=== PATIENT | male | born 1965 ===

== ENCOUNTER 2016-07-17 01:31 | Observation (INO) | payer SELFPAY ==
--- NOTE | 2016-07-17 02:18 | ED PDOC ---
HPI: General Adult Time Seen by Provider: 07/17/16 01:58 Chief Complaint (Nursing): Upper Extremity Problem/Injury History Per: Patient Additional Complaint(s): Pt. states yesterday he was working when he suddenly had "shaking" to his entire R upper arm. Reports no pain to arm. Shaking occurs randomly and resolve spontaneously. Denies chest pain, numbness, tingling, trauma. Past Medical History Reviewed: Historical Data, Nursing Documentation, Vital Signs Vital Signs: Last Vital Signs Temp 98.1 F 07/17/16 01:47 Pulse 68 07/17/16 04:51 Resp 16 07/17/16 01:47 BP 123/96 H 07/17/16 01:47 Pulse Ox 97 07/17/16 04:51 - Medical History PMH: Diabetes - Family History Family History: States: No Known Family Hx - Home Medications Home Medications: Ambulatory Orders Medication Instructions Recorded No Known Home Med 07/17/16 - Allergies Allergies/Adverse Reactions: Allergies Allergy/AdvReac Type Severity Reaction Status Date / Time No Known Allergies Allergy Verified 07/17/16 01:46 Review of Systems ROS Statement: Except As Marked, All Systems Reviewed And Found Negative Physical Exam - Reviewed Nursing Documentation Reviewed: Yes Vital Signs Reviewed: Yes - Physical Exam Appears: Positive for: Well, Non-toxic, No Acute Distress Head Exam: Positive for: ATRAUMATIC, NORMAL INSPECTION, NORMOCEPHALIC Skin: Positive for: Normal Color, Warm. Negative for: Rash Eye Exam: Positive for: EOMI, Normal appearance, PERRL ENT: Positive for: Normal ENT Inspection Neck: Positive for: Normal, Painless ROM Cardiovascular/Chest: Positive for: Regular Rate, Rhythm Respiratory: Positive for: Normal Breath Sounds. Negative for: Decreased Breath Sounds, Accessory Muscle Use, Respiratory Distress Gastrointestinal/Abdominal: Positive for: Normal Exam, Soft. Negative for: Tenderness Back: Positive for: Normal Inspection Extremity: Positive for: Normal ROM, Other (RUE: unprovoked tremors noted to the entire R upper arm without tenderness, swelling, or deformity) Neurologic/Psych: Positive for: Alert, Oriented - Laboratory Results Result Diagrams: 07/17/16 03:00 07/17/16 03:00 - ECG ECG: Positive for: Interpreted By Me ECG Rhythm: Positive for: Sinus Rhythm. Negative for: ST/T Changes Rate: 68 O2 Sat by Pulse Oximetry: 97 - Progress ED Course And Treament: Labs ordered. FSBS: 495. Pt. with gap. IV NS bolus x 2, insulin 8mg IV given. ABG ordered. Pt. admits to not taking his DM meds in 5-6 months. States he has never taken insulin. Further reports he was feeling well therefore he discontinued his DM medication on his own. Case d/w Dr. Thornton, hospitalist, and arrangements made for admission. Disposition - Clinical Impression Clinical Impression: Hyperglycemia - Patient ED Disposition Is Patient to be Admitted: Yes - Disposition Disposition Time: 05:30 Condition: STABLE - Pt Status Changed To: Hospital Disposition Of: Inpatient - Admit Certification Admit to Inpatient:: After my assessment, the patient will require hospitalization for at least two midnights. This is because of the severity of symptoms shown, intensity of services needed, and/or the medical risk in this patient being treated as an outpatient. - POA Present On Arrival: None
[2016-07-17 03:59] LABS: BASO % 0.7 % (0.0-2.0); EOS # 0.1 K/uL (0.0-0.7); EOS % 0.5 % (0.0-4.0); HEMATOCRIT 47.1 % (35.0-51.0); LYMPH # 2.1 K/uL (1.0-4.3); LYMPH % 21.9 % (20.0-40.0); MEAN CELL VOLUME 84.4 fl (80.0-94.0); MEAN CORPUSCULAR HEMOGLOBIN 27.8 pg (27.0-31.0); MEAN PLATELET VOLUME 9.3 fl (7.2-11.7); MONO # 0.9 K/uL (0.0-0.8); MONO % 9.1 % (0.0-10.0); NEUT # 6.4 K/uL (1.8-7.0); NEUT % 67.8 % (50.0-75.0); NRBC % 0.1 % (0.0-0.0); RED CELL DISTRIBUTION WIDTH 15.1 % (11.5-14.5); WHITE BLOOD COUNT 9.4 K/uL (4.8-10.8)
[2016-07-17 04:00] LABS: BASO # 0.1 K/uL (0.0-0.2)
[2016-07-17 04:08] LABS: CHLORIDE 89 mmol/L (98-107); POTASSIUM 5.6 MMOL/L (3.6-5.0); SODIUM 127 mmol/l (132-148)
[2016-07-17 04:10] LABS: GFR AFRICAN-AMERICAN > 60
[2016-07-17 04:11] LABS: ALB/GLOB RATIO 1.1 (1.0-2.1); ALKALINE PHOSPHATASE 95 U/L (38-126); ALT/SGPT 53 U/L (21-72); AST/SGOT 59 U/L (17-59); BILIRUBIN,TOTAL 1.5 mg/dl (0.2-1.3); BLOOD UREA NITROGEN 19 mg/dl (9-20); CALCIUM 8.9 mg/dL (8.4-10.2); CARBON DIOXIDE 20 mmol/L (22-30); TOTAL PROTEIN 8.7 G/DL (6.3-8.2)
[2016-07-17] MEDS ORDERED: Sodium Chloride 0.9% 1,000 ML IV STA ×2 (04:14→04:47)
[2016-07-17] MEDS ORDERED: Insulin Regular 100 units/ml IVP STA ×2 (04:37→05:44)
[2016-07-17] MEDS ORDERED: Insulin Regular 100 units/ml ONE (04:53)
[2016-07-17 05:30] LABS: URINE BILIRUBIN NEGATIVE (NEGATIVE); URINE COLOR YELLOW (YELLOW); URINE GLUCOSE (UA) >1000 mg/dL (Normal); URINE KETONE >=80 mg/dL (NEGATIVE)
[2016-07-17 05:31] LABS: RBC URINE 1 /hpf (0-3); URINE BACTERIA FEW (<OCC); URINE BLOOD TRACE (NEGATIVE); URINE LEUKOCYTE ESTERASE NEGATIVE Leu/uL (Negative); URINE PROTEIN TRACE mg/dL (NEGATIVE); URINE UROBILINOGEN 0.2 mg/dL (0.2-1.0); WBC URINE 2 /hpf (0-5)
--- NOTE | 2016-07-17 06:14 | CP.PCM.HP ---
History of Present Illness - History of Present Illness History of Present Illness: CC: arm tremors, nausea HPI: This is a 51 y/o male with MHx significant for DM2 who self-d/c'ed his medications about 6 month because he was 'feeling good'. He comes in with c/o ' shaking' of his RUE yesterday. He also c/o some nausea. He denies having the shaking prior to yesterday. The shaking occurs randomly and self resolves. Denies any f/c/n/v/d. Denies any history of seizures. Denies focal weakness, numbness, or tingling. ROS: 14 systems reviewed, negative other than HPI MHx: DM2 SHx: None Allergies: NKDA Medications: currently none Family Hx: Patient unable to remember any medical conditions in family Social Hx: Lives alone? denies EtOH or tobacco Present on Admission - Present on Admission Any Indicators Present on Admission: No Past Patient History - Past Social History Smoking Status: Never Smoked - ENDOCRINE/METABOLIC Hx Diabetes Mellitus Type 2: Yes - PSYCHIATRIC Hx Substance Use: No - SURGICAL HISTORY Hx Surgeries: No Meds Allergies/Adverse Reactions: Allergies Allergy/AdvReac Type Severity Reaction Status Date / Time No Known Allergies Allergy Verified 07/17/16 01:46 Physical Exam - Constitutional Appears: No Acute Distress - Head Exam Head Exam: ATRAUMATIC, NORMOCEPHALIC - Eye Exam Eye Exam: EOMI, PERRL - ENT Exam ENT Exam: Mucous Membranes Dry - Neck Exam Neck exam: Positive for: Full Rom - Respiratory Exam Respiratory Exam: Clear to Auscultation Bilateral, NORMAL BREATHING PATTERN - Cardiovascular Exam Cardiovascular Exam: REGULAR RHYTHM, +S1, +S2 - GI/Abdominal Exam GI & Abdominal Exam: Normal Bowel Sounds, Soft Additional comments: umbilical hernia - Extremities Exam Extremities exam: Positive for: full ROM, normal inspection - Neurological Exam Neurological exam: Alert, CN II-XII Intact, Oriented x3 - Psychiatric Exam Psychiatric exam: Normal Affect, Normal Mood - Skin Skin Exam: Dry, Warm Results - Vital Signs Recent Vital Signs: Last Vital Signs Temp 98.1 F 07/17/16 01:47 Pulse 68 07/17/16 06:09 Resp 20 07/17/16 06:05 BP 118/59 L 07/17/16 06:05 Pulse Ox 97 07/17/16 06:09 - Labs Result Diagrams: 07/17/16 03:00 07/17/16 03:00 - EKG Data EKG Interpreted by: Myself EKG shows normal: Sinus rhythm Rate: Normal Assessment & Plan (1) Hyperglycemia Assessment and Plan: 51 y/o male with DM2 who comes in with elevated ser gluc 2/2 being off his medications for months. Also c/o RUE shaking. -NPO for now and IVF -Q4H accuchecks with SSI -BMP at 8 AM -- eval Na, K, CO2, and ser gluc -A1C at 8 AM -Resume PO hypoglycemics this AM if ser gluc improving -Lovenox for DVT PPx Status: Acute (2) DVT prophylaxis Status: Acute
[2016-07-17] MEDS: Sodium Chloride 0.9% 1,000 ML IV SCH ×2 (06:36→14:20)
[2016-07-17] MEDS: Insulin Regular 100 units/ml SC SCH ×3 (06:44→16:17)
[2016-07-17 07:06] LABS: GLUCOSE,RANDOM 710 mg/dL (75-110)
[2016-07-17 08:20] VITALS: RESP 18
[2016-07-17] MEDS ORDERED: Enoxaparin 40 mg Syringe SC SCH (09:00)
--- NOTE | 2016-07-17 09:25 | RAD ---
HISTORY: clearance COMPARISON: 01/17/2009 FINDINGS: LUNGS: No focal airspace opacity. PLEURA: No significant pleural effusion identified, no pneumothorax apparent. CARDIOVASCULAR: Normal. OSSEOUS STRUCTURES: The osseous structures demonstrate degenerative changes. VISUALIZED UPPER ABDOMEN: Upper abdomen is suboptimally evaluated. OTHER FINDINGS: None. IMPRESSION: No focal airspace opacity.
--- NOTE | 2016-07-17 12:02 | CP.PCM.DIS ---
Provider - Provider Date of Admission: 07/17/16 05:44 Attending physician: Jagdish Thornton MD Primary care physician: States that he does not have one Consults: None Time Spent in preparation of Discharge (in minutes): 40 Hospital Course - Lab Results Lab Results: Most Recent Lab Values WBC 9.4 K/uL (4.8-10.8) 07/17/16 03:00 RBC 5.58 Mil/uL (4.40-5.90) 07/17/16 03:00 Hgb 15.5 g/dL (12.0-18.0) 07/17/16 03:00 Hct 47.1 % (35.0-51.0) 07/17/16 03:00 MCV 84.4 fl (80.0-94.0) 07/17/16 03:00 MCH 27.8 pg (27.0-31.0) 07/17/16 03:00 MCHC 33.0 g/dL (33.0-37.0) 07/17/16 03:00 RDW 15.1 % (11.5-14.5) H 07/17/16 03:00 Plt Count 251 K/uL (130-400) 07/17/16 03:00 MPV 9.3 fl (7.2-11.7) 07/17/16 03:00 Neut % (Auto) 67.8 % (50.0-75.0) 07/17/16 03:00 Lymph % (Auto) 21.9 % (20.0-40.0) 07/17/16 03:00 [place] % (Auto) 9.1 % (0.0-10.0) 07/17/16 03:00 Eos % (Auto) 0.5 % (0.0-4.0) 07/17/16 03:00 Baso % (Auto) 0.7 % (0.0-2.0) 07/17/16 03:00 Neut # 6.4 K/uL (1.8-7.0) 07/17/16 03:00 Lymph # 2.1 K/uL (1.0-4.3) 07/17/16 03:00 [place] # 0.9 K/uL (0.0-0.8) H 07/17/16 03:00 Eos # 0.1 K/uL (0.0-0.7) 07/17/16 03:00 Baso # 0.1 K/uL (0.0-0.2) 07/17/16 03:00 Sodium 127 mmol/l (132-148) L 07/17/16 03:00 Potassium 5.6 MMOL/L (3.6-5.0) H 07/17/16 03:00 Chloride 89 mmol/L (98-107) L 07/17/16 03:00 Carbon Dioxide 20 mmol/L (22-30) L 07/17/16 03:00 Anion Gap 24 (10-20) H 07/17/16 03:00 BUN 19 mg/dl (9-20) 07/17/16 03:00 Creatinine 0.7 mg/dL (0.8-1.5) L 07/17/16 03:00 Est GFR ( Amer) > 60 07/17/16 03:00 Est GFR (Non-Af Amer) > 60 07/17/16 03:00 POC Glucose (mg/dL) 322 mg/dL (65-110) H 07/17/16 11:55 Random Glucose 710 mg/dL (75-110) H* 07/17/16 03:00 Calcium 8.9 mg/dL (8.4-10.2) 07/17/16 03:00 Total Bilirubin 1.5 mg/dl (0.2-1.3) H 07/17/16 03:00 AST 59 U/L (17-59) 07/17/16 03:00 ALT 53 U/L (21-72) 07/17/16 03:00 Alkaline Phosphatase 95 U/L (38-126) 07/17/16 03:00 Total Protein 8.7 G/DL (6.3-8.2) H 07/17/16 03:00 Albumin 4.5 g/dL (3.5-5.0) 07/17/16 03:00 Globulin 4.2 gm/dL (2.2-3.9) H 07/17/16 03:00 Albumin/Globulin Ratio 1.1 (1.0-2.1) 07/17/16 03:00 Urine Color Yellow (YELLOW) 07/17/16 05:08 Urine Clarity Clear (Clear) 07/17/16 05:08 Urine pH 6.0 (5.0-8.0) 07/17/16 05:08 Ur Specific [place] <= 1.005 (1.003-1.030) 07/17/16 05:08 Urine Protein Trace mg/dL (NEGATIVE) 07/17/16 05:08 Urine Glucose (UA) >1000 mg/dL (Normal) 07/17/16 05:08 Urine Ketones >=80 mg/dL (NEGATIVE) 07/17/16 05:08 Urine Blood Trace (NEGATIVE) 07/17/16 05:08 Urine Nitrate Negative (NEGATIVE) 07/17/16 05:08 Urine Bilirubin Negative (NEGATIVE) 07/17/16 05:08 Urine Urobilinogen 0.2 mg/dL (0.2-1.0) 07/17/16 05:08 Ur Leukocyte Esterase Negative Myra/uL (Negative) 07/17/16 05:08 Urine RBC (Auto) 1 /hpf (0-3) 07/17/16 05:08 Urine Microscopic WBC 2 /hpf (0-5) 07/17/16 05:08 Ur Squamous Epith Cells 1 /hpf (0-5) 07/17/16 05:08 Urine Bacteria Few (<OCC) H 07/17/16 05:08 - Hospital Course Hospital Course: HPI: This is a 51 y/o male with MHx significant for DM2 who self-d/c'ed his medications about 6 month ago because he was 'feeling good'. He comes in with c/ o 'shaking' of his RUE yesterday. He also c/o some nausea. He denies having the shaking prior to yesterday. The shaking occurs randomly and self resolves. Denies any f/c/n/v/d. Denies any history of seizures. Denies focal weakness, numbness, or tingling. Currently upon FULL ROS there is NO longer any more shaking of his RUE and there is NO longer any nausea. He ate breakfast and there were no issues afterwards. NO chest pain, NO palpitations, NO SOB/Cough/Wheezing, NO dysphagia/odynophagia , NO abdominal pain, NO n/v/d/c (last bowel movement was yesterday and there was NO black/bloody stools), NO burning/pain with urination, NO lightheadedness/ dizziness, NO headache, NO new changes in vision (history of blurriness of vision), NO new changes in hearing/ear pain, NO edema, NO paresthesias. Exam: HEENT: EOMI, PERRLA, NO cervical lymphadenopathy, NO thryomegaly, NO pharyngeal erythema/exudate Cardio: NS1 and NS2, NO M/R/G Resp: CTA B/L, NO R/R/W GI: BSx4, Soft, NT, ND, Central Obesity and therefore Liver and Spleen could not be palpated, (+) Umbilical Hernia without any signs of strangulation, NO guarding/rebound tenderness Ext: Pulses are strong and equal, Capillary Refill is 2 seconds, NO edema Neuro: CN II through XII are grossly intact Assessment and Plan: 1). Hyperglycemia I spoke with the Respiratory Therapy Aide and she will provide patient with Diabetic Diet in [place] Will discharge patient on Metformin 500 mg PO 2x/day: patient could not provide information concerning which diabetic oral medication he was taking 6 months ago. Stressed the importance of follow up with the clinic for coordination of his health care. Although still high, blood glucose much improved from admission Patient is stable for discharge to home and follow up with the clinic The following instructions were explained to patient and a copy of this discharge summary was provided to patient: 1). Have the following prescription filled at your pharmacy: Metformin 500 mg, 1 tablet with breakfast and 1 tablet with dinner everyday 2). Please make sure to contact the [facility] by calling for an appointment to take place in the next 7 days. It is located on [address] [place] [address] in [place], [place]. The [facility] will helpt to coordinate your care. 3). Follow the recommendations on the Diabetic Diet hand out that was provided to you by the Respiratory Therapy Aide. 4). Please take care. Dave Zaman D.O. Discharge Exam - Head Exam Head Exam: ATRAUMATIC, NORMOCEPHALIC Discharge Plan - Follow Up Plan Condition: STABLE Disposition: HOME/ ROUTINE
--- NOTE | 2016-07-17 12:43 | CARD ---
APPROVED REPORT EKG Measurement Heart [id number] <Conclusion> Sinus rhythm with premature atrial complexes Junctional ST depression, probably normal Borderline ECG
[2016-07-17 12:51] VITALS: BP 119/73; PULSE 66; TEMP 98; O2SAT 96
[2016-07-17 14:02] LABS: BLOOD UREA NITROGEN 14 mg/dl (9-20); CALCIUM 7.6 mg/dL (8.4-10.2); CARBON DIOXIDE 24 mmol/L (22-30); CHLORIDE 99 mmol/L (98-107); GFR AFRICAN-AMERICAN > 60; GLUCOSE,RANDOM 365 mg/dL (75-110); POTASSIUM 3.6 MMOL/L (3.6-5.0); SODIUM 132 mmol/l (132-148)
[2016-07-19 09:51] LABS: ABG ALLEN TEST YES; ARTERIAL BLOOD GAS PH 7.38 (7.35-7.45); ARTERIAL BLOOD GAS PO2 76 mm/Hg (80-100)
== END 2016-07-17 15:00 | disposition home or self-care (01) ==
LOC: H.ER 01:31 → H.ERHOLD 05:44 → H.TEL 07:06
PROVIDERS: ADMIT Internal Medicine; ATTEND Internal Medicine
DX: E11.65 Type 2 diabetes mellitus with hyperglycemia (principal); E66.9 Obesity, unspecified; K42.9 Umbilical hernia without obstruction or gangrene
CPT/HCPCS: 71010; 80053; 81003; 82803; 82948; 83036; 85025; 93005; 96361; 96372; 96374; 96376; 99285; G0378; J1650; J7040

== ENCOUNTER 2016-08-04 16:50 | Emergency (ER) | payer SELFPAY ==
[2016-08-04 16:54] VITALS: BP 136/81; PULSE 69; RESP 16; TEMP 98.5; O2SAT 98
[2016-08-04] MEDS ORDERED: Insulin Regular 100 units/ml SC STA (17:25)
[2016-08-04] MEDS ORDERED: Sodium Chloride 0.9% 1,000 ML IV STA ×2 (17:25→20:43)
[2016-08-04 17:53] LABS: BASO # 0.1 K/uL (0.0-0.2); BASO % 1.2 % (0.0-2.0); EOS # 0.1 K/uL (0.0-0.7); EOS % 0.8 % (0.0-4.0); HEMATOCRIT 45.9 % (35.0-51.0); LYMPH # 1.7 K/uL (1.0-4.3); LYMPH % 27.2 % (20.0-40.0); MEAN CELL VOLUME 84.2 fl (80.0-94.0); MEAN CORPUSCULAR HEMOGLOBIN 27.4 pg (27.0-31.0); MEAN CORPUSCULAR HGB CONC 32.6 g/dL (33.0-37.0); MEAN PLATELET VOLUME 8.1 fl (7.2-11.7); MONO # 0.5 K/uL (0.0-0.8); MONO % 8.4 % (0.0-10.0); NEUT # 3.9 K/uL (1.8-7.0); NEUT % 62.4 % (50.0-75.0); NRBC % 0.1 % (0.0-0.0); RED CELL DISTRIBUTION WIDTH 15.1 % (11.5-14.5); WHITE BLOOD COUNT 6.3 K/uL (4.8-10.8)
[2016-08-04 18:11] LABS: ALB/GLOB RATIO 1.2 (1.0-2.1); ALKALINE PHOSPHATASE 67 U/L (38-126); ALT/SGPT 85 U/L (21-72); AST/SGOT 40 U/L (17-59); BILIRUBIN,TOTAL 0.4 mg/dl (0.2-1.3); BLOOD UREA NITROGEN 13 mg/dl (9-20); CALCIUM 8.6 mg/dL (8.4-10.2); CARBON DIOXIDE 24 mmol/L (22-30); CHLORIDE 100 mmol/L (98-107); GFR AFRICAN-AMERICAN > 60; GLUCOSE,RANDOM 313 mg/dL (75-110); SODIUM 136 mmol/l (132-148); TOTAL PROTEIN 7.5 G/DL (6.3-8.2)
--- NOTE | 2016-08-04 18:13 | ED PDOC ---
Hyperglycemia/Hypoglycemia Time Seen by Provider: 08/04/16 17:07 Chief Complaint (Nursing): High Blood Sugar Chief Complaint (Provider): hyperglycemia History Per: Patient History/Exam Limitations: no limitations Current Symptoms Are (Timing): Still Present : The patient does not have any of the infectious symptoms listed except for those marked. Additional Complaint(s): Aguilar Hull is a 51 year old male with previous medical history of diabetes, who presents to the emergency department for an evaluation of high sugar levels associated with blurry vision found on recent blood work done by PCP as a follow up of hospital admission 2 weeks ago. PCP noted high levels of ketones with Accu-chek and urine dipstick. Denies any increased thirst, urine frequency, fevers, chills, chest pain or abdominal pain. PMD: none provided Past Medical History Reviewed: Historical Data, Nursing Documentation, Vital Signs Vital Signs: Last Vital Signs Temp 98.5 F 08/04/16 16:52 Pulse 69 08/04/16 16:52 Resp 16 08/04/16 16:52 BP 136/81 08/04/16 16:52 Pulse Ox 98 08/04/16 16:52 - Medical History PMH: Diabetes Denies: Chronic Kidney Disease - Family History Family History: States: Other Other Family History: Mother had diabetes - Living Arrangements Living Arrangements: Alone - Social History Current smoker - smoking cessation education provided: No Alcohol: Occasional Drugs: Denies - Home Medications Home Medications: Ambulatory Orders Medication Instructions Recorded MetFORMIN [glucoPHAGE] 1,000 mg PO BIDWM #60 tab 07/17/16 - Allergies Allergies/Adverse Reactions: Allergies Allergy/AdvReac Type Severity Reaction Status Date / Time No Known Allergies Allergy Verified 07/17/16 01:46 Review of Systems ROS Statement: Except As Marked, All Systems Reviewed And Found Negative Constitutional: Negative for: Fever, Chills Eyes: Positive for: Vision Change (blurred) Cardiovascular: Negative for: Chest Pain Gastrointestinal: Positive for: Other (increased thirst). Negative for: Abdominal Pain Genitourinary Male: Negative for: Dysuria, Frequency Physical Exam - Reviewed Nursing Documentation Reviewed: Yes Vital Signs Reviewed: Yes - Physical Exam Appears: Positive for: Well, Non-toxic, No Acute Distress Head Exam: Positive for: ATRAUMATIC, NORMAL INSPECTION, NORMOCEPHALIC Skin: Positive for: Normal Color, Warm, DRY ENT: Positive for: Normal ENT Inspection (moist mucous membrane) Neck: Positive for: Normal, Painless ROM, Supple Cardiovascular/Chest: Positive for: Regular Rate, Rhythm Respiratory: Positive for: Normal Breath Sounds. Negative for: Crackles, Rales , Rhonchi, Wheezing Gastrointestinal/Abdominal: Positive for: Normal Exam, Bowel Sounds, Soft. Negative for: Tenderness Extremity: Positive for: Normal ROM Neurologic/Psych: Positive for: Alert, Oriented - Laboratory Results Result Diagrams: 08/04/16 17:45 08/04/16 17:45 - ECG O2 Sat by Pulse Oximetry: 98 (RA) Pulse Ox Interpretation: Normal Medical Decision Making Medical Decision Making: Initial Impression: Hyperglycemia Initial Plan: * Labs * Urine dipstick * HumuLIN R 6 units SC * NS 1,000 ml IV per 1,000 mls/hr * Glucose * Urinalysis * Accu-check * Reevaluate ~ Scribe Attestation: Documented by Maddi Hernandez, acting as a scribe for Princess Barron MD. Provider Scribe Attestation: All medical record entries made by the Scribe were at my direction and personally dictated by me. I have reviewed the chart and agree that the record accurately reflects my personal performance of the history, physical exam, medical decision making, and the department course for this patient. I have also personally directed, reviewed, and agree with the discharge instructions and disposition. Disposition - Clinical Impression Clinical Impression: Hyperglycemia - Patient ED Disposition Is Patient to be Admitted: Transfer of Care - Disposition Referrals: Emilee Barron MD [Primary Care Provider] - Disposition: Transfer of Care Disposition Time: 19:00 Condition: STABLE Patient Signed Over To: Tevin Kaiser III Present On Arrival: None
[2016-08-04 19:11] LABS: RBC URINE 3 /hpf (0-3); URINE BACTERIA FEW (<OCC); URINE BILIRUBIN NEGATIVE (NEGATIVE); URINE BLOOD SMALL (NEGATIVE); URINE COLOR YELLOW (YELLOW); URINE GLUCOSE (UA) >=500 mg/dL (Normal); URINE KETONE 80 mg/dL (NEGATIVE); URINE LEUKOCYTE ESTERASE NEG Leu/uL (Negative); URINE PROTEIN 30 mg/dL (NEGATIVE); URINE UROBILINOGEN 0.2-1.0 mg/dL (0.2-1.0); WBC URINE 2 /hpf (0-5)
[2016-08-04] MEDS ORDERED: Insulin Regular 100 units/ml IVP ONE (20:43)
--- NOTE | 2016-08-04 21:54 | ED PDOC ---
- Laboratory Results Result Diagrams: 08/04/16 17:45 08/04/16 17:45 - ECG O2 Sat by Pulse Oximetry: 98 (RA) Medical Decision Making Medical Decision Making: recd on endorsement from Dr Valentine pending glycemic control. Repeat accucheck now 213. Feels better. Chem unremarkable, vitals normal. Discussed w Dr Eldridge from [facility], will need close followup for meds adjustment. Pt states all hes taking is metformin 500mg BID, will upgrade to 1000mg BID. Research Food Technologist normal. Disposition - Clinical Impression Clinical Impression: Hyperglycemia - POA Present On Arrival: None - Disposition Referrals: Emilee Barron MD [Primary Care Provider] - [facility] [Outside] Disposition: Routine/Home Disposition Time: 21:54 Condition: STABLE Additional Instructions: See clinic for further testing and medication adjustments. Return to ER for any worse or new symptoms. If your sugars are not better controlled, you may require insulin for better glycemic control. Prescriptions: MetFORMIN [glucoPHAGE] 1,000 mg PO BID #20 tab Instructions: Diabetic Hyperglycemia (ED) Print Language: CYMRO
== END 2016-08-04 22:06 | disposition home or self-care (01) ==
LOC: H.ER 16:50
DX: E11.65 Type 2 diabetes mellitus with hyperglycemia (principal); Z79.84 Long term (current) use of oral hypoglycemic drugs

== ENCOUNTER 2016-10-25 11:27 | Emergency (ER) | payer SELFPAY ==
[2016-10-25 11:45] VITALS: BP 122/80; PULSE 71; RESP 20; TEMP 97.7; O2SAT 98
--- NOTE | 2016-10-25 12:20 | ED PDOC ---
HPI: CCC, URI, Sore Throat Time Seen by Provider: 10/25/16 12:03 Chief Complaint (Nursing): ENT Problem Chief Complaint (Provider): Left ear pain History Per: Patient History/Exam Limitations: no limitations Have you had recent travel within the past 21 days to any of the following countries: [place], [place], [place] or [place]?: No Onset/Duration Of Symptoms: Days (4) Current Symptoms Are (Timing): Still Present Location Of Pain: Ear(s), Throat Sick Contacts (Context): None Associated Symptoms: denies: Fever, Sore Throat, Cough, Nasal Congestion Ear Symptoms: Left: Ear Pain Additional History Per: Patient Additional Complaint(s): The patient is a 51yo male, presents to the ED for evaluation of left ear pain, radiating down his throat, present for the past 4 days. Patient denies any associated fever, sore throat, cough, or congestion. He also denies recent swimming, changes in hearing. Patient currently offers no additional medical complaints. Past Medical History Reviewed: Historical Data, Nursing Documentation, Vital Signs Vital Signs: Last Vital Signs Temp 97.7 F 10/25/16 11:44 Pulse 71 10/25/16 11:44 Resp 20 10/25/16 11:44 BP 122/80 10/25/16 11:44 Pulse Ox 98 10/25/16 12:25 - Medical History PMH: Diabetes Denies: Chronic Kidney Disease - Surgical History Surgical History: No Surg Hx - Family History Family History: States: No Known Family Hx - Social History Current smoker - smoking cessation education provided: No Alcohol: None Drugs: Denies - Home Medications Home Medications: Ambulatory Orders Medication Instructions Recorded MetFORMIN [glucoPHAGE] 1,000 mg PO BIDWM #60 tab 07/17/16 MetFORMIN [glucoPHAGE] 1,000 mg PO BID #20 tab 08/04/16 Ciprofloxacin/Dexamethasone 4 drop BID #1 bottle 10/25/16 [Ciprodex Otic] - Allergies Allergies/Adverse Reactions: Allergies Allergy/AdvReac Type Severity Reaction Status Date / Time No Known Allergies Allergy Verified 10/25/16 11:46 Review of Systems ROS Statement: Except As Marked, All Systems Reviewed And Found Negative Constitutional: Negative for: Fever ENT: Positive for: Ear Pain (left). Negative for: Throat Pain Respiratory: Negative for: Cough Physical Exam - Reviewed Nursing Documentation Reviewed: Yes Vital Signs Reviewed: Yes - Physical Exam Appears: Positive for: Non-toxic, No Acute Distress Head Exam: Positive for: ATRAUMATIC, NORMAL INSPECTION, NORMOCEPHALIC Skin: Positive for: Normal Color, Warm, Dry Eye Exam: Positive for: Normal appearance ENT: Positive for: TM Is/Are (non-erythematous and non-bulging b/l ). Negative for: Normal ENT Inspection (left outer ear canal with mild exudate and edema; auriculars with no swelling or deformity.), Pharyngeal Erythema, Tonsillar Exudate, Tonsillar Swelling Neck: Positive for: Normal Cardiovascular/Chest: Positive for: Regular Rate, Rhythm Respiratory: Positive for: Normal Breath Sounds. Negative for: Accessory Muscle Use, Respiratory Distress Neurologic/Psych: Positive for: Alert, Oriented. Negative for: Motor/Sensory Deficits - ECG O2 Sat by Pulse Oximetry: 98 (RA) Pulse Ox Interpretation: Normal Medical Decision Making Medical Decision Making: Time: 1203 Impression: Otitis externa Plan: -- Patient to be discharged home with a prescription for antibiotic ear drops. Patient informed to follow up with PCP in 1-2 days and to return to ED if symptoms worsen or new symptoms arise. Scribe Attestation: Documented by Brunilda Ortiz acting as a scribe for ANICETO Owen Provider Attestation: All medical record entries made by the Scribe were at my direction and personally dictated by me. I have reviewed the chart and agree that the record accurately reflects my personal performance of the history, physical exam, medical decision making, and the department course for this patient. I have also personally directed, reviewed, and agree with the discharge instructions and disposition. Disposition - Clinical Impression Clinical Impression: Otitis externa - Patient ED Disposition Is Patient to be Admitted: No - Disposition Referrals: Radha Byrd [Outside] Disposition: Routine/Home Disposition Time: 12:15 Condition: STABLE Additional Instructions: FOLLOW UP WITH YOUR PMD IN 2 DAYS FOR FURTHER EVALUATION Prescriptions: Ciprofloxacin/Dexamethasone [Ciprodex Otic] 4 drop BID #1 bottle Instructions: Otitis Externa (ED) Forms: [employer] (Amharic), [employer] (Burkinan) Print Language: THAI
== END 2016-10-25 12:34 | disposition home or self-care (01) ==
LOC: H.ER 11:27
DX: H60.92 Unspecified otitis externa, left ear (principal)

== ENCOUNTER 2017-02-01 10:30 | Day surgery (SDC) | payer SELFPAY ==
[2017-02-01] MEDS ORDERED: Lactated Ringer's 1,000 ML IV ONE (11:01)
[2017-02-01] MEDS ORDERED: Propofol 10 mg/ml Inj (20 ML) ONE (11:51)
[2017-02-01] MEDS ORDERED: Lidocaine 2% MPF (5 ml) Inj ONE (11:51)
[2017-02-01] MEDS ORDERED: Midazolam 2 MG/2 ML VIAL ONE (11:51)
[2017-02-01 12:20] VITALS: TEMP 97
[2017-02-01 12:29] VITALS: BP 116/59; PULSE 655; RESP 16; O2SAT 100
== END 2017-02-01 12:30 | disposition home or self-care (01) ==
LOC: H.ENDO 10:30
PROVIDERS: ATTEND Internal Medicine Gastroenterology
DX: Z12.11 Encounter for screening for malignant neoplasm of colon (principal); E11.9 Type 2 diabetes mellitus without complications; I10 Essential (primary) hypertension; E66.9 Obesity, unspecified; D12.0 Benign neoplasm of cecum; K64.1 Second degree hemorrhoids; K57.30 Diverticulosis of large intestine without perforation or abscess without bleeding
CPT/HCPCS: 45380; 82948; 88305; J2250; J2704; J3010; J7120

== ENCOUNTER 2017-03-18 10:44 | Emergency (ER) | payer SELFPAY ==
[2017-03-18 10:54] VITALS: BP 129/78; PULSE 85; RESP 18; TEMP 98.1; O2SAT 99
--- NOTE | 2017-03-18 13:30 | ED PDOC ---
HPI: Back Time Seen by Provider: 03/18/17 12:15 Chief Complaint (Nursing): Back Pain Chief Complaint (Provider): Back Pain History Per: Patient History/Exam Limitations: no limitations Onset/Duration Of Symptoms: Days (x3) Current Symptoms Are (Timing): Still Present Additional Complaint(s): Patient reports pain in the left lower back for 3 days. Pain worsens with movement, and when he walks. Has been taking Ibuprofen without relief. Otherwise: (-) paresthesias, (-) weakness, (-) acute bowel or bladder dysfunction, (-) fever. PMD: Dr. Duane Lacy Past Medical History Reviewed: Historical Data, Nursing Documentation, Vital Signs Vital Signs: Last Vital Signs Temp 98.1 F 03/18/17 10:51 Pulse 85 03/18/17 10:51 Resp 18 03/18/17 10:51 BP 129/78 03/18/17 10:51 Pulse Ox 99 03/18/17 10:51 - Medical History PMH: Diabetes, HTN Denies: Chronic Kidney Disease - Surgical History Surgical History: No Surg Hx - Family History Family History: States: Unknown Family Hx - Social History Current smoker - smoking cessation education provided: No Ex-Smoker (has not smoked in the last 12 months): Yes Alcohol: None Drugs: Denies - Home Medications Home Medications: Ambulatory Orders Medication Instructions Recorded Cyclobenzaprine [Cyclobenzaprine 10 mg PO TID PRN #15 tab 03/18/17 HCl] Meloxicam [Mobic] 15 mg PO DAILY #20 tab 03/18/17 traMADol [Ultram] 50 mg PO TID PRN #12 tab 03/18/17 - Allergies Allergies/Adverse Reactions: Allergies Allergy/AdvReac Type Severity Reaction Status Date / Time No Known Allergies Allergy Verified 02/01/17 11:07 Review of Systems ROS Statement: Except As Marked, All Systems Reviewed And Found Negative Constitutional: Negative for: Fever Genitourinary Male: Negative for: Frequency, Incontinence Musculoskeletal: Positive for: Back Pain Neurological: Negative for: Weakness, Numbness (or paresthesia) Physical Exam - Reviewed Nursing Documentation Reviewed: Yes Vital Signs Reviewed: Yes - Physical Exam Comments: GENERAL APPEARANCE: Patient is awake, alert, oriented x 3, in mild painful distress. SKIN: Warm, dry; (-) cyanosis. EYES: (-) conjunctival pallor. ENMT: Mucous membranes moist. NECK: (-) tenderness, (-) stiffness, (-) lymphadenopathy. CHEST AND RESPIRATORY: (-) rales, (-) rhonchi, (-) wheezes; breath sounds equal bilaterally. HEART AND CARDIOVASCULAR: (-) irregularity; (-) murmur, (-) gallop. ABDOMEN AND GI: Soft; (-) tenderness; (-) palpable mass. BACK: Tender to the left paralumbar area, (+) mild spasm, (-) direct bony tenderness, (-) deformity. Straight leg raising (-) bilaterally. EXTREMITIES: (-) deformity. Distal pulses good bilaterally. NEURO AND PSYCH: Mental status as above. Intact sensation bilaterally; normal strength in extension of the knees, plantar and dorsiflexion of the toes. DTRs symmetric. - ECG O2 Sat by Pulse Oximetry: 99 (RA) Pulse Ox Interpretation: Normal Medical Decision Making Medical Decision Making: Time: 13:08 Initial Plan: * Flexeril PO * Toradol IM * Tramadol PO Reeval: Patient reports mild improvement of pain, feels comfortable going home and states he will follow up with PMD. Advised to follow up with primary care physician in 1-2 days without fail. Advised to take medication as prescribed. Return to the emergency room at any time for any new or worsening symptoms. Patient states he fully agrees with and understands discharge instructions. States that he agrees with the plan and disposition. Verbalized and repeated discharge instructions and plan. I have given the patient opportunity to ask any additional questions. Scribe Attestation: Documented by Laurie Guillaume, acting as a scribe for Josi Jha PA-C Provider Scribe Attestation: All medical record entries made by the Scribe were at my direction and personally dictated by me. I have reviewed the chart and agree that the record accurately reflects my personal performance of the history, physical exam, medical decision making, and the department course for this patient. I have also personally directed, reviewed, and agree with the discharge instructions and disposition. Disposition - Clinical Impression Clinical Impression: Low back pain - Patient ED Disposition Is Patient to be Admitted: No Counseled Patient/Family Regarding: Diagnosis, Need For Followup, Rx Given - Disposition Disposition: Routine/Home Disposition Time: 13:35 Condition: STABLE Additional Instructions: Advised to follow up with primary care physician in 1-2 days without fail. Advised to take medication as prescribed. Return to the emergency room at any time for any new or worsening symptoms. Patient states he fully agrees with and understands discharge instructions. States that he agrees with the plan and disposition. Verbalized and repeated discharge instructions and plan. I have given the patient opportunity to ask any additional questions. Prescriptions: Cyclobenzaprine [Cyclobenzaprine HCl] 10 mg PO TID PRN #15 tab PRN Reason: Muscle Spasm Meloxicam [Mobic] 15 mg PO DAILY #20 tab traMADol [Ultram] 50 mg PO TID PRN #12 tab PRN Reason: Pain, Moderate (4-7) Instructions: Acute Low Back Pain (ED) Forms: [employer] Connect (Ecuadorean), [facility] ED School/Work Excuse Print Language: SAMI - POA Present On Arrival: None
== END 2017-03-18 14:32 | disposition home or self-care (01) ==
LOC: H.ER 10:44
DX: M54.5 Low back pain (principal); E11.9 Type 2 diabetes mellitus without complications; I10 Essential (primary) hypertension
CPT/HCPCS: 96372; 99281; J1885

== ENCOUNTER 2017-07-19 09:32 | Emergency (ER) | payer OTHER, SELFPAY ==
[2017-07-19 09:38] VITALS: TEMP 98.5
[2017-07-19] MEDS ORDERED: Sodium Chloride 0.9% 1,000 ML IV STA (09:59)
[2017-07-19 10:26] LABS: BASO # 0.1 K/uL (0.0-0.2); EOS # 0.1 K/uL (0.0-0.7); EOS % 1.2 % (0.0-4.0); LYMPH # 1.6 K/uL (1.0-4.3); LYMPH % 14.4 % (20.0-40.0); MEAN CELL VOLUME 85.4 fl (80.0-94.0); MEAN CORPUSCULAR HEMOGLOBIN 28.4 pg (27.0-31.0); MEAN CORPUSCULAR HGB CONC 33.3 g/dL (33.0-37.0); MEAN PLATELET VOLUME 7.6 fl (7.2-11.7); MONO # 0.8 K/uL (0.0-0.8); MONO % 7.3 % (0.0-10.0); NEUT # 8.6 K/uL (1.8-7.0); NEUT % 76.1 % (50.0-75.0); RBC 4.93 Mil/uL (4.40-5.90); RED CELL DISTRIBUTION WIDTH 15.3 % (11.5-14.5); WHITE BLOOD COUNT 11.3 K/uL (4.8-10.8)
[2017-07-19] MEDS ORDERED: Sodium Chloride 0.9% 100 ML ONE (10:31)
[2017-07-19] MEDS ORDERED: Iohexol 300 100 ML IJ ONE (10:31)
[2017-07-19 10:35] LABS: ALB/GLOB RATIO 1.1 (1.0-2.1); ALBUMIN 3.8 g/dL (3.5-5.0); ALT/SGPT 55 U/L (21-72); AST/SGOT 25 U/L (17-59); BLOOD UREA NITROGEN 20 mg/dl (9-20); CALCIUM 8.6 mg/dL (8.4-10.2); GFR AFRICAN-AMERICAN > 60; GFR NON-AFRICAN AMERICAN > 60
--- NOTE | 2017-07-19 11:00 | ED PDOC ---
HPI: General Adult Time Seen by Provider: 07/19/17 09:40 Chief Complaint (Nursing): ENT Problem Chief Complaint (Provider): Right ear pain History Per: Patient History/Exam Limitations: no limitations Onset/Duration Of Symptoms: Days (3x) Current Symptoms Are (Timing): Still Present Additional Complaint(s): 52 year old diabetic male presents to the ED complaining of right ear pain onset for 3 days. Patients right-side of the face is swollen. Denies fever, vomiting, or nausea. PMD: Duane Lacy Past Medical History Reviewed: Historical Data, Nursing Documentation, Vital Signs Vital Signs: Last Vital Signs Temp 98.5 F 07/19/17 14:22 Pulse 63 07/19/17 14:22 Resp 19 07/19/17 14:22 BP 119/69 07/19/17 14:22 Pulse Ox 97 07/20/17 10:05 - Medical History PMH: Diabetes, HTN Denies: Chronic Kidney Disease - Surgical History Surgical History: No Surg Hx - Family History Family History: States: Unknown Family Hx - Social History Current smoker - smoking cessation education provided: Yes Alcohol: Social Drugs: Denies - Home Medications Home Medications: Ambulatory Orders Medication Instructions Recorded Cyclobenzaprine [Cyclobenzaprine 10 mg PO TID PRN #15 tab 03/18/17 HCl] Meloxicam [Mobic] 15 mg PO DAILY #20 tab 03/18/17 traMADol [Ultram] 50 mg PO TID PRN #12 tab 03/18/17 Amoxicillin/Clavulanate [Augmentin 1 tab PO BID #20 tab 07/19/17 875 MG-125 MG] Neomycin/Polymyxin/Hydrocort 4 drop AD QID #1 bottle 07/19/17 [Cortisporin Otic Soln] - Allergies Allergies/Adverse Reactions: Allergies Allergy/AdvReac Type Severity Reaction Status Date / Time No Known Allergies Allergy Verified 07/19/17 09:43 Review of Systems ROS Statement: Except As Marked, All Systems Reviewed And Found Negative Constitutional: Negative for: Fever ENT: Positive for: Ear Pain (right), Other (right-sided facial swelling) Gastrointestinal: Negative for: Nausea, Vomiting Physical Exam - Reviewed Nursing Documentation Reviewed: Yes Vital Signs Reviewed: Yes - Physical Exam Appears: Positive for: Non-toxic Head Exam: Positive for: ATRAUMATIC, NORMAL INSPECTION, NORMOCEPHALIC Skin: Positive for: Normal Color, Warm, Dry ENT: Positive for: TM Is/Are (right swollen external canal, right ear otitis media w dull TM), Other (right facial swelling). Negative for: Normal ENT Inspection (difficult to visualize) Neck: Positive for: Normal Cardiovascular/Chest: Positive for: Regular Rate, Rhythm Respiratory: Positive for: Normal Breath Sounds. Negative for: Decreased Breath Sounds, Accessory Muscle Use, Respiratory Distress Gastrointestinal/Abdominal: Positive for: Normal Exam, Bowel Sounds, Soft. Negative for: Tenderness, Guarding, Rebound Extremity: Positive for: Normal ROM Neurologic/Psych: Positive for: Alert, Oriented (x3). Negative for: Motor/ Sensory Deficits - Laboratory Results Result Diagrams: 07/19/17 10:10 07/19/17 10:10 - ECG O2 Sat by Pulse Oximetry: 97 (RA) Pulse Ox Interpretation: Normal Medical Decision Making Medical Decision Making: Time: 958 Initial Impression: facial swelling and OM and OE r/o facial cellulitis versus abscess Initial Plan: --Maxillofacial w/ Contrast [CT] --CMP --CBC w/ Differential --Normal Saline 999 mls/hr --Toradol 30mg --Zofran 4mg --Blood Culture --Reevaluation Time: 1140 PROCEDURE: CT MAXILLOFACIAL BONES WITH CONTRAST HISTORY: l facial swelling COMPARISON: None. TECHNIQUE: Contiguous axial CT images of the maxillofacial bones were obtained following administration of IV contrast. Coronal and sagittal reformats were generated. Intravenous contrast Dose: 95 cc of Omni 300 Radiation dose: Total exam DLP = 927 mGy-cm. This CT exam was performed using one or more of the following dose reduction techniques: Automated exposure control, adjustment of the mA and/or kV according to patient size, and/or use of iterative reconstruction technique. FINDINGS: NASAL BONES: Unremarkable. ORBITS: Unremarkable. PARANASAL SINUSES/ MASTOIDS: There is severe narrowing of the right external auditory canal consistent with otitis externa. There is also partial opacification of the middle ear cavity. The findings are best appreciated on image 111 series 3. There is no evidence of mastoiditis. MAXILLA: Unremarkable. MANDIBLE/ TEMPOROMANDIBULAR JOINTS: Unremarkable. SKULL BASE: Unremarkable. TEMPORAL BONES: See above OTHER FINDINGS: There is a 14 mm mass in the deep lobe of the parotid on the left. This is most likely an intra parotid lymph node. IMPRESSION: Right-sided otitis externa and otitis media. 14 mm intra parotid lymph node on the left side. Labs present elevated white blood count and elevated sugar. pt made aware of results and instructed to follow up with outpatient ENT. PT Agreeable to plan. Clinical Impression: otitis media, lymph nodes enlarged Upon provider evaluation patient is medically stable, and requires no further treatment in the ED at this time. Patient will be discharged with Augmentin 875mg -125mg and Cortisporin Otic Solution for ear infection and outer ear infection. 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 There is agreement to discharge plan. Return if symptoms persist or worsen. Scribe Attestation: Documented by Lester Gomez, acting as a scribe for Phong Moya MD Provider Scribe Attestation: All medical record entries made by the Scribe were at my direction and personally dictated by me. I have reviewed the chart and agree that the record accurately reflects my personal performance of the history, physical exam, medical decision making, and the department course for this patient. I have also personally directed, reviewed, and agree with the discharge instructions and disposition. Disposition - Clinical Impression Clinical Impression: Otitis media, Otitis externa, Lymph nodes enlarged - Patient ED Disposition Is Patient to be Admitted: No Counseled Patient/Family Regarding: Studies Performed, Diagnosis, Need For Followup - Disposition Referrals: [employer] [facility] [Outside] Juan Manuel Edwards MD [Staff Provider] - Disposition: Routine/Home Disposition Time: 12:00 Condition: IMPROVED Additional Instructions: Follow up with ENT doctor in 2 days for reevaluation. take motrin for pain. return to the ED with any worsening or concerning symptoms. Prescriptions: Amoxicillin/Clavulanate [Augmentin 875 MG-125 MG] 1 tab PO BID #20 tab Neomycin/Polymyxin/Hydrocort [Cortisporin Otic Soln] 4 drop AD QID #1 bottle Instructions: Ear Infections (Otitis Media), Outer Ear Infection (DC) Forms: [facility] (Sami) Print Language: SALVADOREAN
--- NOTE | 2017-07-19 11:42 | CT ---
PROCEDURE: CT MAXILLOFACIAL BONES WITH CONTRAST HISTORY: l facial swelling COMPARISON: None. TECHNIQUE: Contiguous axial CT images of the maxillofacial bones were obtained following administration of IV contrast. Coronal and sagittal reformats were generated. Intravenous contrast Dose: 95 cc of Omni 300 Radiation dose: Total exam DLP = 927 mGy-cm. This CT exam was performed using one or more of the following dose reduction techniques: Automated exposure control, adjustment of the mA and/or kV according to patient size, and/or use of iterative reconstruction technique. FINDINGS: NASAL BONES: Unremarkable. ORBITS: Unremarkable. PARANASAL SINUSES/ MASTOIDS: There is severe narrowing of the right external auditory canal consistent with otitis externa. There is also partial opacification of the middle ear cavity. The findings are best appreciated on image 111 series 3. There is no evidence of mastoiditis. MAXILLA: Unremarkable. MANDIBLE/ TEMPOROMANDIBULAR JOINTS: Unremarkable. SKULL BASE: Unremarkable. TEMPORAL BONES: See above OTHER FINDINGS: There is a 14 mm mass in the deep lobe of the parotid on the left. This is most likely an intra parotid lymph node. IMPRESSION: Right-sided otitis externa and otitis media. 14 mm intra parotid lymph node on the left side.
[2017-07-19 14:23] VITALS: BP 119/69; PULSE 63; RESP 19
[2017-07-20 10:05] VITALS: O2SAT 97
== END 2017-07-19 14:33 | disposition home or self-care (01) ==
LOC: H.ER 09:32
DX: H66.91 Otitis media, unspecified, right ear (principal); H60.91 Unspecified otitis externa, right ear; R59.9 Enlarged lymph nodes, unspecified; E11.9 Type 2 diabetes mellitus without complications; F17.200 Nicotine dependence, unspecified, uncomplicated; I10 Essential (primary) hypertension
CPT/HCPCS: 70488; 80053; 85025; 87040; 96361; 96365; 96375; 99284; J0295; J1885; J7030; Q9967

== ENCOUNTER 2018-04-24 06:21 | Day surgery (SDC) | payer SELFPAY ==
[2018-04-21 09:12] VITALS: BMI 40.6
[2018-04-24 07:03] VITALS: RESP 18
[2018-04-24] MEDS ORDERED: Lidocaine 1% w Epi 1:100,000 Inj ONE (07:14)
[2018-04-24 07:19] LABS: BLOOD UREA NITROGEN 23 mg/dl (9-20); CALCIUM 8.5 mg/dL (8.4-10.2); GFR NON-AFRICAN AMERICAN > 60
--- NOTE | 2018-04-24 07:31 | CP.SDSHP ---
Same Day Surgery H & P - History Proposed Procedure: Excsision of thigh mass Pre-Op Diagnosis: HTN, DM, Soft tissue mass - Previous Medical/Surgical History Cardiac: Hypertension Endocrine/Metabolic: Diabetes Previous Surgical History: Denies - Allergies Allergies: Allergies No Known Allergies Allergy (Verified 07/19/17 09:43) - Physical Exam General Appearance: NAD, Well nurished Vital Signs: Vital Signs 04/24/18 04/24/18 06:45 07:01 Temperature 98.1 F Pulse Rate 68 68 Respiratory 18 Rate Blood Pressure 126/78 O2 Sat by Pulse 96 Oximetry Mental Status: Alert & Oriented x3 Neuro: WNL Heart: WNL Lungs: WNL GI: WNL - {Optional Preform as Required} Abdomen: WNL Integument: WNL ENT: WNL - Impression Impression: 52M with soft tissue masses on thigh Pt. Evaluated Today:Candidate for Anesthesia & Procedure: Yes - Date & Time Date: 04/24/18 Time: 07:31 Short Stay Discharge - Short Stay Discharge Admitting Diagnosis/Reason for Visit: M79.9 Disposition: HOME/ ROUTINE Follow-up: Followup as needed Instructions: Skin Lesion Removal Additional Instructions (Diet, Activity): OK to shower, keep clean, if you develop any drainage or worsening symptoms please call Dr. Sanabria or go to the ED
[2018-04-24] MEDS ORDERED: Propofol 10 mg/ml Inj (20 ML) ONE (07:50)
[2018-04-24] MEDS ORDERED: Midazolam 2 MG/2 ML VIAL ONE (07:50)
[2018-04-24] MEDS ORDERED: Lactated Ringer's 1,000 ML IV ONE (07:55)
[2018-04-24] MEDS ORDERED: Lidocaine 1% w Epi 1:100,000 Inj INJ ONE (08:17)
--- NOTE | 2018-04-24 08:39 | PCM.SURG1 ---
Surgeon's Initial Post Op Note - Surgeon's Notes Surgeon: Dr. Sanabria [employer] Front Desk Attendant: Dr. Chava Packer PGY1, Dr. Chase Guevara, PGY3 Type of Anesthesia: IV Sedation, Local Anesthesia Administered By: Dr. Llanes Pre-Operative Diagnosis: Right thigh soft tissue mass Operative Findings: see dictation. 12 cc Lidocaine with epinephrine, 4-0 Monocryl Post-Operative Diagnosis: same Operation Performed: Right thigh, removal of soft tissue mass Specimen/Specimens Removed: soft tissue mass Estimated Blood Loss: EBL {In ML}: 1 Blood Products Given: N/A Drains Used: No Drains Post-Op Condition: Good Date of Surgery/Procedure: 04/24/18 Time of Surgery/Procedure: 08:39
[2018-04-24] MEDS ORDERED: Lactated Ringer's 1,000 ML IV SCH (08:45)
[2018-04-24 10:16] VITALS: O2SAT 95
[2018-04-24 11:09] VITALS: BP 116/79; PULSE 67; TEMP 97.9
--- NOTE | 2018-04-24 17:25 | CARD ---
APPROVED REPORT Date of service: 04/24/2018 EKG Measurement Heart [id number] <Conclusion> Normal sinus rhythm Normal ECG
--- NOTE | 2018-04-24 19:55 | OP ---
PROCEDURE DATE: 04/24/2018 PREOPERATIVE DIAGNOSIS: Right thigh soft tissue mass. POSTOPERATIVE DIAGNOSIS: Right thigh soft tissue mass. OPERATION PERFORMED: Removal of soft tissue mass of the thigh. SURGEON: Joni Sanabria MD SURGEON SUNITHA: Chase Guevara DO MANAGER ENTERPRISE: Dr. Chava Packer. ANESTHESIA: IV sedation. ANESTHESIA ADMINISTERED BY: Dr. Llanes. COMPLICATIONS: None. ESTIMATED BLOOD LOSS: Less than 1 mL. IDENTIFICATION: Ms. Aguilar Hull is a very pleasant 52-year-old male, who presented due to a fungating lesion on his right thigh that has been present for two years. It is not painful; however, it does get stuck on his clothes and has caused him inconvenience. He requests to have it removed. DESCRIPTION OF PROCEDURE: After all consents were obtained, the patient was brought to the emergency room, placed in a supine position. IV sedation was administered. The patient was prepped and draped in the usual sterile fashion using a Chloraprep. Time-out was done. The correct patient name, position, and procedure as well as allergies were confirmed. An elliptical incision was made on the base of the polypoid lesion using a 15 blade. Lesion was excised. Hemostasis was achieved using electrocautery. There were no complications. No lipomas were found. All surgical counts were reported as correct. Using a 4-0 Monocryl, the skin was closed and it was covered with a surgical glue. The [facility] and taken to the PACU in good condition. Chase Guevara DO Joni Sanabria MD MTDLala
== END 2018-04-24 11:23 | disposition home or self-care (01) ==
LOC: H.OPSURG 06:21
PROVIDERS: ATTEND Specialist
DX: D21.21 Benign neoplasm of connective and other soft tissue of right lower limb, including hip (principal); E11.9 Type 2 diabetes mellitus without complications; I10 Essential (primary) hypertension
CPT/HCPCS: 27327; 36415; 80048; 82948; 88304; 93005; J2250; J3010; J7120